=== PATIENT | female | born 1970 | race Caucasian/White ===

== ENCOUNTER 2016-11-02 18:56 | Emergency (ER) | payer OTHER ==
[2016-11-02 19:04] VITALS: RESP 16; TEMP 98.8
[2016-11-02] MEDS ORDERED: ASPIRIN 81 MG CHEW PO STA (19:39)
[2016-11-02] MEDS ORDERED: NITROGLYCERIN OINT 1 INCH/GM PACKET TOPICAL STA (19:39)
--- NOTE | 2016-11-02 19:43 | ED ---
General Adult HPI - General Chief complaint: Chest Pain Stated complaint: chest pain Time Seen by Provider: 11/02/16 19:30 Source: patient, RN notes reviewed Mode of arrival: wheelchair Limitations: no limitations - History of Present Illness Initial comments: Patient is a pleasant 45-year-old female presenting to the emergency department complaining of chest discomfort. Symptoms have been intermittent over the past couple of weeks. Symptoms have been on and off all day today. Symptoms are somewhat worse today. Symptoms are mild at this time. Patient has discomfort in her left chest. Discomfort is worse with deep breaths as well as touch. Patient did not feel short of breath. No nausea. Patient was sweaty earlier. No history of similar symptoms previously. Patient does have associated palpitations. Patient did have recent Holter monitor as well as echo and was told there is some sort of abnormality of the lower part of her heart. - Related Data Home Medications Medication Instructions Recorded Confirmed Hydrochlorothiazide [Hydrodiuril] 25 mg PO DAILY 11/02/16 11/02/16 Metoprolol Tartrate [Lopressor] 25 mg PO DAILY 11/02/16 11/02/16 Terbinafine [LamISIL] 250 mg PO DAILY 11/02/16 11/02/16 Vitamin E (Dl,Tocopheryl Acet) 400 unit PO DAILY 11/02/16 11/02/16 [Vitamin E] amLODIPine [Norvasc] 10 mg PO DAILY 11/02/16 11/02/16 Allergies Allergy/AdvReac Type Severity Reaction Status Date / Time hydrocodone [From Vicodin] AdvReac Nausea & Verified 11/02/16 19:31 Vomiting ibuprofen [From Motrin] AdvReac Unknown Verified 11/02/16 19:31 Review of Systems ROS Statement: Those systems with pertinent positive or pertinent negative responses have been documented in the HPI. ROS Other: All systems not noted in ROS Statement are negative. Constitutional: Denies: fever Eyes: Denies: eye pain ENT: Denies: ear pain Respiratory: Denies: cough, dyspnea Cardiovascular: Reports: chest pain, palpitations Endocrine: Denies: fatigue Gastrointestinal: Denies: abdominal pain Genitourinary: Denies: dysuria Musculoskeletal: Denies: back pain Skin: Denies: rash Neurological: Denies: weakness Past Medical History Past Medical History: Cancer, Hypertension Additional Past Medical History / Comment(s): Kidney, History of Any Multi-Drug Resistant Organisms: None Reported Past Surgical History: Orthopedic Surgery, Tubal Ligation Additional Past Surgical History / Comment(s): Portion of (L) kidney has been removed. Past Psychological History: No Psychological Hx Reported Smoking Status: Never smoker Past Alcohol Use History: None Reported Past Drug Use History: None Reported General Exam Limitations: no limitations General appearance: alert, in no apparent distress Head exam: Present: atraumatic Eye exam: Present: normal appearance, PERRL ENT exam: Present: normal oropharynx Neck exam: Present: normal inspection Respiratory exam: Present: normal lung sounds bilaterally, chest wall tenderness Cardiovascular Exam: Present: regular rate, normal rhythm Expanded Peripheral pulses: 2+: Radial (R), Radial (L), Dorsalis Pedis (R), Dorsalis Pedis (L) GI/Abdominal exam: Present: soft. Absent: tenderness Extremities exam: Present: normal inspection. Absent: pedal edema, calf tenderness Neurological exam: Present: alert Psychiatric exam: Present: normal affect, normal mood Skin exam: Absent: rash Course Vital Signs 11/02/16 11/02/16 18:59 20:50 Temperature 98.8 F Pulse Rate 85 85 Respiratory 16 16 Rate Blood Pressure 174/85 106/56 O2 Sat by Pulse 97 95 Oximetry EKG Findings - EKG Comments: EKG Findings:: Normal sinus rhythm at 85. MO 140. QRS 86. QT 376. QTc 447. Normal axis. Normal QRS. Normal ST-T. Medical Decision Making - Medical Decision Making Patient reevaluated and resting comfortably in bed. Patient updated on results and plan. Case discussed with Dr. Marroquin, who will admit for Dr. vargas - Lab Data Result diagrams: 11/02/16 19:14 11/02/16 19:14 Lab Results 11/02/16 11/02/16 11/02/16 Range/Units 19:14 19:14 19:14 WBC 8.6 (3.8-10.6) k/uL RBC 5.04 (3.80-5.40) m/uL Hgb 14.4 (11.4-16.0) gm/dL Hct 42.6 (34.0-46.0) % MCV 84.4 (80.0-100.0) fL MCH 28.5 (25.0-35.0) pg MCHC 33.8 (31.0-37.0) g/dL RDW 13.3 (11.5-15.5) % Plt Count 297 (150-450) k/uL Neutrophils % 54 % Lymphocytes % 36 % Monocytes % 4 % Eosinophils % 2 % Basophils % 1 % Neutrophils # 4.6 (1.3-7.7) k/uL Lymphocytes # 3.1 (1.0-4.8) k/uL Monocytes # 0.4 (0-1.0) k/uL Eosinophils # 0.2 (0-0.7) k/uL Basophils # 0.1 (0-0.2) k/uL PT (9.0-12.0) sec INR (<1.1) APTT (22.0-30.0) sec D-Dimer (<0.60) mg/L FEU Sodium 145 (137-145) mmol/L Potassium 3.7 (3.5-5.1) mmol/L Chloride 103 (98-107) mmol/L Carbon Dioxide 31 H (22-30) mmol/L Anion Gap 11 mmol/L BUN 14 (7-17) mg/dL Creatinine 1.00 (0.52-1.04) mg/dL Est GFR (MDRD) Af Amer >60 (>60 ml/min/1.73 sqM) Est GFR (MDRD) Non-Af 60 (>60 ml/min/1.73 sqM) Glucose 109 H (74-99) mg/dL Calcium 9.6 (8.4-10.2) mg/dL Magnesium 1.9 (1.6-2.3) mg/dL Total Bilirubin 0.3 (0.2-1.3) mg/dL AST 17 (14-36) U/L ALT 28 (9-52) U/L Alkaline Phosphatase 81 (38-126) U/L Total Creatine Kinase 36 (30-135) U/L CK-MB (CK-2) 0.7 (0.0-2.4) ng/mL CK-MB (CK-2) Rel Index 1.9 Troponin I <0.012 (0.000-0.034) ng/mL Total Protein 7.4 (6.3-8.2) g/dL Albumin 4.2 (3.5-5.0) g/dL 11/02/16 Range/Units 19:14 WBC (3.8-10.6) k/uL RBC (3.80-5.40) m/uL Hgb (11.4-16.0) gm/dL Hct (34.0-46.0) % MCV (80.0-100.0) fL MCH (25.0-35.0) pg MCHC (31.0-37.0) g/dL RDW (11.5-15.5) % Plt Count (150-450) k/uL Neutrophils % % Lymphocytes % % Monocytes % % Eosinophils % % Basophils % % Neutrophils # (1.3-7.7) k/uL Lymphocytes # (1.0-4.8) k/uL Monocytes # (0-1.0) k/uL Eosinophils # (0-0.7) k/uL Basophils # (0-0.2) k/uL PT 10.0 (9.0-12.0) sec INR 1.0 (<1.1) APTT 23.2 (22.0-30.0) sec D-Dimer 0.22 (<0.60) mg/L FEU Sodium (137-145) mmol/L Potassium (3.5-5.1) mmol/L Chloride (98-107) mmol/L Carbon Dioxide (22-30) mmol/L Anion Gap mmol/L BUN (7-17) mg/dL Creatinine (0.52-1.04) mg/dL Est GFR (MDRD) Af Amer (>60 ml/min/1.73 sqM) Est GFR (MDRD) Non-Af (>60 ml/min/1.73 sqM) Glucose (74-99) mg/dL Calcium (8.4-10.2) mg/dL Magnesium (1.6-2.3) mg/dL Total Bilirubin (0.2-1.3) mg/dL AST (14-36) U/L ALT (9-52) U/L Alkaline Phosphatase (38-126) U/L Total Creatine Kinase (30-135) U/L CK-MB (CK-2) (0.0-2.4) ng/mL CK-MB (CK-2) Rel Index Troponin I (0.000-0.034) ng/mL Total Protein (6.3-8.2) g/dL Albumin (3.5-5.0) g/dL - Radiology Data Radiology results: image reviewed (Chest x-ray shows no acute process) Disposition Clinical Impression: Chest pain Disposition: ADMITTED IP TO THIS [facility] Time of Disposition: 21:07
[2016-11-02 19:50] LABS: Basophils # (A) 0.1 k/uL (0-0.2); Basophils % (A) 1 %; CH 28.6; Eosinophils # (A) 0.2 k/uL (0-0.7); Eosinophils % (A) 2 %; HCT 42.6 % (34.0-46.0); HDW 2.98; HGB 14.4 gm/dL (11.4-16.0); Luc # (Auto) 0.25; Luc % (Auto) 3; Lymphocytes # (A) 3.1 k/uL (1.0-4.8); Lymphocytes % (A) 36 %; MCH 28.5 pg (25.0-35.0); MCHC 33.8 g/dL (31.0-37.0); MCV 84.4 fL (80.0-100.0); Mean Platelet Volume 7.7; Monocytes # (A) 0.4 k/uL (0-1.0); Monocytes % (A) 4 %; Neutrophils # (A) 4.6 k/uL (1.3-7.7); Neutrophils % (A) 54 %; RBC 5.04 m/uL (3.80-5.40); RDW 13.3 % (11.5-15.5); WBC 8.6 k/uL (3.8-10.6); WBC (Perox) 8.37
[2016-11-02 19:59] LABS: ALT 28 U/L (9-52); AST 17 U/L (14-36); Alkaline Phosphatase 81 U/L (38-126); Anion Gap 11 mmol/L; Blood Urea Nitrogen 14 mg/dL (7-17); Calcium 9.6 mg/dL (8.4-10.2); Carbon Dioxide 31 mmol/L (22-30); Chloride 103 mmol/L (98-107); Glucose 109 mg/dL (74-99); Magnesium 1.9 mg/dL (1.6-2.3); Non-African American GFR(MDRD) 60 (>60 ml/min/1.73 sqM); Potassium 3.7 mmol/L (3.5-5.1); Sodium 145 mmol/L (137-145); Total Bilirubin 0.3 mg/dL (0.2-1.3); Total Protein 7.4 g/dL (6.3-8.2)
[2016-11-02 20:03] LABS: Partial Thromboplastin Time 23.2 sec (22.0-30.0)
[2016-11-02 20:12] LABS: Creatine Kinase 36 U/L (30-135)
--- NOTE | 2016-11-02 20:12 | XR ---
EXAMINATION TYPE: XR chest 2V DATE OF EXAM: 11/02/2016 7:59 PM COMPARISON: NONE HISTORY: Chest pain TECHNIQUE: Frontal and lateral views of the chest are obtained. FINDINGS: Heart and mediastinum are normal. Lungs are clear. Diaphragm is normal. Bony thorax is int act. There are chest leads. IMPRESSION: Normal chest
[2016-11-02 20:23] LABS: Creatine Kinase MB 0.7 ng/mL (0.0-2.4); Troponin I <0.012 ng/mL (0.000-0.034)
[2016-11-02] MEDS ORDERED: NITROGLYCERIN SL TABS 0.4 MG TAB SUBLINGUAL PRN (21:07)
[2016-11-02 21:30] VITALS: BP 111/58; PULSE 90
[2016-11-03] MEDS ORDERED: NITROGLYCERIN OINT 1 INCH/GM PACKET TOPICAL SCH
[2016-11-03] MEDS ORDERED: ASPIRIN 325 MG TAB PO SCH (09:00)
== END 2016-11-02 21:30 | disposition other institution (70) ==
LOC: EC 18:56 → 3SUR 21:07 → UNDOADMOB 21:07
DX: R07.9 Chest pain, unspecified (principal); I10 Essential (primary) hypertension; Z85.9 Personal history of malignant neoplasm, unspecified; Z88.6 Allergy status to analgesic agent; Z88.5 Allergy status to narcotic agent; Z79.899 Other long term (current) drug therapy
CPT/HCPCS: 36415; 71020; 80053; 82550; 82553; 83735; 84484; 85025; 85379; 85610; 85730; 93005; 99285

== ENCOUNTER 2018-04-23 08:31 | Day surgery (SDC) | payer OTHER ==
[2018-04-21 11:11] VITALS: BMI 45.7
--- NOTE | 2018-04-23 05:45 | P.GSHP ---
History of Present Illness H&P Date: 04/23/18 CHIEF COMPLAINT: Colon screen HISTORY OF PRESENT ILLNESS: The patient is a 47-year-old female who presents for colon screen. Lower endoscopy was offered for further evaluation and management. PAST MEDICAL HISTORY: Please see list. PAST SURGICAL HISTORY: Please see list. MEDICATIONS: Please see list. ALLERGIES: Please see list. SOCIAL HISTORY: No illicit drug use FAMILY HISTORY: No reports of Crohn disease or ulcerative colitis. REVIEW OF ORGAN SYSTEMS: CONSTITUTIONAL: No reports of fevers or chills. PHYSICAL EXAM: VITAL SIGNS: Stable GENERAL: Well-developed pleasant in no acute distress. HEENT: No scleral icterus. Extraocular movements grossly intact. Moist buccal mucosa. NECK: Supple without lymphadenopathy. CHEST: Unlabored respirations. Equal bilateral excursions. CARDIOVASCULAR: Regular rate and rhythm. Distal 2+ pulses. ABDOMEN: Soft, nontender, nondistended. MUSCULOSKELETAL: No clubbing, cyanosis, or edema. ASSESSMENT: 1. Colon screen. PLAN: 1. Recommend proceeding with a lower endoscopy Past Medical History Past Medical History: Cancer, Hypertension Additional Past Medical History / Comment(s): Hx Kidney CA 15 yrs, History of Any Multi-Drug Resistant Organisms: None Reported Past Surgical History: Orthopedic Surgery, Tubal Ligation Additional Past Surgical History / Comment(s): Portion of (L) kidney has been removed. Past Anesthesia/Blood Transfusion Reactions: No Reported Reaction Smoking Status: Former smoker - Past Family History Mother Family Medical History: No Reported History Medications and Allergies Home Medications Medication Instructions Recorded Confirmed Type Hydrochlorothiazide [Hydrodiuril] 25 mg PO DAILY 11/02/16 04/21/18 History Metoprolol Tartrate [Lopressor] 25 mg PO DAILY 11/02/16 04/21/18 History Vitamin E (Dl,Tocopheryl Acet) 400 unit PO WE 11/02/16 04/21/18 History [Vitamin E] amLODIPine [Norvasc] 10 mg PO DAILY 11/02/16 04/21/18 History Cyclobenzaprine [Flexeril] 5 mg PO TID 04/21/18 04/21/18 History DULoxetine HCL [Cymbalta] 20 mg PO DAILY 04/21/18 04/21/18 History Loratadine 10 mg PO DAILY 04/21/18 04/21/18 History Meloxicam 7.5 mg PO DAILY 04/21/18 04/21/18 History traMADol HCL [Ultram] 50 mg PO Q4HR PRN 04/21/18 04/21/18 History Allergies Allergy/AdvReac Type Severity Reaction Status Date / Time hydrocodone [From Vicodin] AdvReac Nausea & Verified 04/21/18 10:55 Vomiting ibuprofen [From Motrin] AdvReac one kidney Verified 04/21/18 10:55
[~2018-04-23 08:31] MED LIST: LACTATED RINGERS 1,000 ML IV SCH
[2018-04-23] MEDS ORDERED: LIDOCAINE 1% 20 ML VIAL (10MG/ML) FOR IV START INTRADERMA ONE (09:29)
[2018-04-23 09:32] VITALS: RESP 16; TEMP 97.3
[2018-04-23] MEDS ORDERED: LIDOCAINE 1% INJ 10MG/ML (20 ML MDV) ONE (10:05)
[2018-04-23] MEDS ORDERED: PROPOFOL 10 MG/ML 20 ML VIAL IV ONE (10:05)
--- NOTE | 2018-04-23 10:26 | P.PCN ---
Date of Procedure: 04/23/18 Description of Procedure: PREOPERATIVE DIAGNOSIS: History of rectal bleeding Ghange in bowel habits Family history of colon cancer, grandmother POSTOPERATIVE DIAGNOSIS: History of rectal bleeding Ghange in bowel habits Family history of colon cancer, grandmother Tubular adenoma, malignant polyp, ileocecal valve (cecum) Sigmoid diverticulosis OPERATION: Colonoscopy to the ileocecal valve and appendiceal orifice. Colonoscopy with hot snare polypectomy at ileocecal valve SURGEON: Nanette Ho MD. ANESTHESIA: MAC. INDICATIONS: The patient is a 47-year-old female who presents for evaluation for rectal bleeding. Benefits and risks were described and informed consent was obtained. DESCRIPTION OF PROCEDURE: The patient had undergone Gatorade, MiraLAX and Dulcolax prep. She had been brought into the operating room and laid in the left lateral decubitus position. After adequate intravenous sedation, the rectum was examined with 2% lidocaine jelly. External hemorrhoids were encountered. The rectal tone was within normal limits. No lesions were palpated in the rectal vault. An Olympus colonoscope was advanced until the ileocecal valve and appendiceal orifice were clearly viewed. The prep was poor with semisolid stool in the sigmoid colon. The scope was removed with visualization of each mucosal fold. Sigmoid diverticulosis was encountered. A large over 1 cm tubular adenoma pedunculated identified at the ileocecal valve snare polypectomy. No evidence of focal colitis was found. Retroflexion of the scope demonstrated grade 1 internal hemorrhoids without active bleeding or inflammation. The colon was desufflated. The patient had tolerated the procedure well. Withdrawal time was over 6 minutes. FINDINGS: Internal hemorrhoids, grade 1 External hemorrhoids, grade 2 No arteriovenous malformations Removal of 1 large polyp from ascending colon: - A large over 1 cm tubular adenoma pedunculated identified at the ileocecal valve snare polypectomy. No focal colitis. Sigmoid diverticulosis RECOMMENDATIONS: Given severity of tubular adenomas, recommend repeat colonoscopy 1 year, 2018 Plan - Discharge Summary New Discharge Prescriptions: No Action amLODIPine [Norvasc] 10 mg PO DAILY Vitamin E (Dl,Tocopheryl Acet) [Vitamin E] 400 unit PO WE Metoprolol Tartrate [Lopressor] 25 mg PO DAILY Hydrochlorothiazide [Hydrodiuril] 25 mg PO DAILY traMADol HCL [Ultram] 50 mg PO Q4HR PRN PRN Reason: Pain Cyclobenzaprine [Flexeril] 5 mg PO TID Meloxicam 7.5 mg PO DAILY Loratadine 10 mg PO DAILY DULoxetine HCL [Cymbalta] 20 mg PO DAILY Discharge Medication List Hydrochlorothiazide [Hydrodiuril] 25 mg PO DAILY 11/02/16 [History] Metoprolol Tartrate [Lopressor] 25 mg PO DAILY 11/02/16 [History] Vitamin E (Dl,Tocopheryl Acet) [Vitamin E] 400 unit PO WE 11/02/16 [History] amLODIPine [Norvasc] 10 mg PO DAILY 11/02/16 [History] Cyclobenzaprine [Flexeril] 5 mg PO TID 04/21/18 [History] DULoxetine HCL [Cymbalta] 20 mg PO DAILY 04/21/18 [History] Loratadine 10 mg PO DAILY 04/21/18 [History] Meloxicam 7.5 mg PO DAILY 04/21/18 [History] traMADol HCL [Ultram] 50 mg PO Q4HR PRN 04/21/18 [History]
[2018-04-23 10:42] VITALS: PULSE 88
[2018-04-23 10:58] VITALS: BP 138/90
== END 2018-04-23 11:01 | disposition home or self-care (01) ==
LOC: ORWHC2ENDO 08:31
PROVIDERS: ATTEND Surgery Plastic and Reconstructive Surgery
DX: D12.0 Benign neoplasm of cecum (principal); K57.30 Diverticulosis of large intestine without perforation or abscess without bleeding; K64.0 First degree hemorrhoids; K64.1 Second degree hemorrhoids; Z80.0 Family history of malignant neoplasm of digestive organs; I10 Essential (primary) hypertension; Z87.891 Personal history of nicotine dependence; Z85.528 Personal history of other malignant neoplasm of kidney; F39 Unspecified mood [affective] disorder; Z90.5 Acquired absence of kidney; Z79.1 Long term (current) use of non-steroidal anti-inflammatories (NSAID); Z79.899 Other long term (current) drug therapy; Z88.6 Allergy status to analgesic agent; Z88.5 Allergy status to narcotic agent
CPT/HCPCS: 45385; J2001; J2704; 88305

== ENCOUNTER → 2019-03-09 | Outpatient (CLI) | payer OTHER ==
--- NOTE | 2019-03-09 22:38 | US ---
EXAMINATION TYPE: US thyroid st tissue head/neck DATE OF EXAM: 03/09/2019 COMPARISON: NONE CLINICAL HISTORY: 48-year-old female E04.9 Enlarged thyroid. Pt states possible thyroid enlargement f elt on Dr's examination, not on thyroid meds TECHNIQUE: Multiple sonographic images of the thyroid gland are obtained. FINDINGS: GLAND SIZE: Right Lobe: 6.1 x 1.9 x 1.9 cm Overall Parenchyma: heterogenous Left Lobe: 5.5 x 1.8 x 2.0 cm Overall Parenchyma: heterogeneous Isthmus Thickness: 0.5 cm NODULES RIGHT: # of nodules measured on right: 1 1. 2.7 X 1.3 x 1.6 cm hypoechoic solid nodule at the mid pole with well-defined margins; This nodu le is wider than tall and shows intranodular vascularity. Prior size: No prior Other innumerable sub-centimeter nodules scattered throughout lobe LEFT: # of nodules measured on left: 1 1. 0.8 X 0.5 x 0.7 cm isoechoic solid nodule at the mid pole with poorly defined margins; This nod ule is wider than tall and shows intranodular vascularity. Prior size: No prior Sheriff Sergeant notes: Bilateral neck scanned, no evidence of lymphadenopathy. Nodule >1.0 cm in the righ t lobe, all other nodules are sub-centimeter. IMPRESSION: 1. Thyromegaly with numerous subcentimeter nodules. Findings suggest goiter. 2. Dominant nodule is on the right measuring 2.7 x 1.6 cm. The decision to biopsy should be made on a clinical basis.
== END | disposition home or self-care (01) ==
LOC: RADUSWWP 14:40
PROVIDERS: ATTEND Family Medicine
DX: E04.2 Nontoxic multinodular goiter (principal); Z88.6 Allergy status to analgesic agent; Z88.5 Allergy status to narcotic agent
CPT/HCPCS: 76536

== ENCOUNTER → 2019-07-02 | Outpatient (CLI) | payer OTHER ==
--- NOTE | 2019-07-02 22:29 | CONS ---
CONSULTATION DATE OF SERVICE: 07/02/2019 48-year-old lady has been evaluated in the sleep center for possible obstructive sleep apnea-hypopnea syndrome and excessive daytime sleepiness. HISTORY OF PRESENT ILLNESS/SLEEP-WAKE EVALUATION: SLEEP SCHEDULE: Patient's usual sleep schedule from 10 p.m. until 5:00 am but she goes out of bed only at noon. FALLING ASLEEP: She denies any problems with falling asleep. No TV in bedroom. DURING SLEEP: She prefers to sleep on the stomach position. She has loud snoring, witnessed episodes of stopped breathing during sleep. Patient wakes up from sleep with a choking about several times and has episodes of nocturia. No history of hypnagogic hallucinations, sleep paralysis or cataplexy. DURING THE DAY/SLEEP WAKE EVALUATION: During the day, the patient feels sleepy. Takes up to 2 naps a day at a different time. [place] Sleepiness Scale significantly increased to 15. She has problems with memory, depression. PAST MEDICAL HISTORY: Positive for fibromyalgia, recently diagnosed with Parkinson disease, hypertension, anxiety and myasthenia gravis. PAST SURGICAL HISTORY: Left knee arthroscopic surgery x2, status post left nephrectomy for kidney CA in 2002, menopause for 2 years. MEDICATIONS: 1. Ropinirole 0.25 mg 3 times a day. 2. Cyclobenzaprine. 3. Duloxetine. 4. Loratadine. 5. Hydrochlorothiazide. 6. Amlodipine. 7. Meloxicam. 8. Metoprolol. 9. Tramadol. 10.Vitamin D2 supplement. REVIEW OF SYSTEMS: Awakenings from sleep, sleepiness during the day. FAMILY HISTORY: Hypertension, heart problems, fibromyalgia, arthritis, snoring, cancer, restless legs. SOCIAL HISTORY: Positive for smoking less than 1 pack a day for 10 years, quit about 22 years ago. Alcohol consumption none. PHYSICAL EXAM: lady without distress. BP 135/62, HR 91, RR 16, height 5 feet 3 inches, weight 277.4 pounds, body mass index 49.0, temperature 98.6, oxygen saturation at room air 95%. Oropharynx: Retrognathia 3-4 mm. Extremely low position of soft palate. Mallampati 4. Restriction of nasal breathing. Wide neck for female 16 inches. NECK: Supple, no JVD. Thyroid is not palpable. LUNGS: Clear to percussion and to auscultation. Good air exchange. No wheezing or rhonchi. HEART: S1, S2 regular. No murmurs, gallops, or rubs. ABDOMEN: Obese. Soft and nontender. Bowel sounds are present. No organomegaly appreciated. EXTREMITIES: No clubbing or cyanosis. MANAGER OF CASE: Awake, alert, and oriented X3. Cranial nerves 2 to 7 intact. There is no fasciculation or atrophy. noted. No focal deficits observed. Tremor of the finger with finger probe. IMPRESSION: 1. Loud snoring, witnessed episodes of stopped breathing during the sleep, awakenings from sleep with choking, extremely low position of soft palate, Mallampati 4. Wide neck. Excessive daytime sleepiness, obstructive sleep apnea-hypopnea syndrome. 2. Obesity BMI 49.0. 3. History of fibromyalgia. 4. Parkinson disease. 5. Hypertension. 6. Anxiety. 7. Status post left knee arthroscopic surgery x2. 8. Status post left nephrectomy for carcinoma in 2002. 9. Menopause for 2 years. PLAN: 1. Polysomnography for evaluation of patient's breathing during sleep. 2. CPAP/BiPAP titration if sleep study confirms obstructive sleep apnea-hypopnea syndrome. 3. Preferable position during sleep on the side. 4. No driving if patient feels any sleepiness. 5. I will see patient for follow up visit to explain results of testing and following plan. Thank you very much for referring this patient for consultation. Sincerely, Waldemar Morrison MD, PhD, FAASM Diplomat of [place] [employer] [place] [employer] Operation Shift Supervisor of [facility] [place] MMODL / IJN: [id number] /
== END | disposition home or self-care (01) ==
LOC: SLEEP 14:35
PROVIDERS: ATTEND Internal Medicine
DX: G47.33 Obstructive sleep apnea (adult) (pediatric) (principal); F17.210 Nicotine dependence, cigarettes, uncomplicated; E66.9 Obesity, unspecified; I10 Essential (primary) hypertension; F41.9 Anxiety disorder, unspecified; G20 Parkinson's disease; Z68.42 Body mass index [BMI] 45.0-49.9, adult; Z78.0 Asymptomatic menopausal state; Z98.890 Other specified postprocedural states; Z87.39 Personal history of other diseases of the musculoskeletal system and connective tissue; Z79.899 Other long term (current) drug therapy; Z79.891 Long term (current) use of opiate analgesic
CPT/HCPCS: 99211

== ENCOUNTER 2020-10-21 12:56 | Emergency (ER) | payer OTHER ==
[2020-10-21 13:09] VITALS: BP 164/80; PULSE 109; RESP 18; TEMP 98.1
[2020-10-21] MEDS ORDERED: MORPHINE SULFATE 4 MG/ML SYRINGE IM STA (13:16)
--- NOTE | 2020-10-21 13:22 | ED ---
Lower Extremity Injury HPI - General Chief Complaint: Extremity Injury, Lower Stated Complaint: fall, rt ankle injury Time Seen by Provider: 10/21/20 13:10 Source: patient, RN notes reviewed Mode of arrival: wheelchair Limitations: no limitations - History of Present Illness Initial Comments: Patient is a 49-year-old female that presents to emergency department with right ankle pain after missing the last step on her stairs. She noted that she did fall and scraped up her alcala. She notes that most the pain is in her lateral right ankle. She notes that the ankle swelled. She states that she is unable to walk on it at this time. Patient did note that she can wiggle her toes but has a difficult time moving her ankle secondary to pain. She notes the pain is a 9 out of 10 constant with no relief from at home remedies or ice. Patient denied any numbness tingling chest pain first breath headache nausea vomiting diarrhea constipation fever fatigue chills. - Related Data Home Medications Medication Instructions Recorded Confirmed Metoprolol Tartrate [Lopressor] 25 mg PO DAILY 11/02/16 04/27/20 amLODIPine [Norvasc] 10 mg PO DAILY 11/02/16 04/27/20 hydroCHLOROthiazide [Hydrodiuril] 25 mg PO DAILY 11/02/16 04/27/20 Cyclobenzaprine [Flexeril] 5 mg PO TID 04/21/18 04/27/20 Loratadine 10 mg PO DAILY 04/21/18 04/27/20 Meloxicam 7.5 mg PO DAILY 04/21/18 04/27/20 traMADol HCL [Ultram] 50 mg PO Q4HR PRN 04/21/18 04/27/20 DULoxetine HCL [Cymbalta] 60 mg PO DAILY 04/27/20 04/27/20 rOPINIRole HCL [Requip] 0.25 mg PO TID 04/27/20 04/27/20 Allergies Allergy/AdvReac Type Severity Reaction Status Date / Time hydrocodone [From Vicodin] AdvReac Nausea & Verified 10/21/20 13:09 Vomiting ibuprofen [From Motrin] AdvReac one kidney Verified 10/21/20 13:09 Review of Systems ROS Statement: Those systems with pertinent positive or pertinent negative responses have been documented in the HPI. ROS Other: All systems not noted in ROS Statement are negative. Past Medical History Past Medical History: Cancer, Fibromyalgia, Hypertension Additional Past Medical History / Comment(s): KIDNEY CANCER. PARKINSON'S History of Any Multi-Drug Resistant Organisms: None Reported Past Surgical History: Orthopedic Surgery, Tubal Ligation Additional Past Surgical History / Comment(s): Portion of (L) kidney has been removed. LT KNEE SCOPE X 2. COLONOSCOPY Past Anesthesia/Blood Transfusion Reactions: Previous Problems w/ Anesthesia Additional Past Anesthesia/Blood Transfusion Reaction / Comment(s): O2 LEVELS DROP WHEN COMING OUT OF ANESTHESIA Past Psychological History: No Psychological Hx Reported Smoking Status: Former smoker Past Alcohol Use History: None Reported Past Drug Use History: None Reported - Past Family History Mother Family Medical History: Cancer Sister(s) Family Medical History: Cancer General Exam Limitations: no limitations General appearance: alert, in no apparent distress, obese Head exam: Present: atraumatic, normocephalic, normal inspection Eye exam: Present: normal appearance, PERRL, EOMI. Absent: scleral icterus, conjunctival injection, periorbital swelling Neck exam: Present: normal inspection Respiratory exam: Present: normal lung sounds bilaterally. Absent: respiratory distress, wheezes, rales, rhonchi, stridor Cardiovascular Exam: Present: regular rate, normal rhythm, normal heart sounds. Absent: systolic murmur, diastolic murmur, rubs, gallop, clicks GI/Abdominal exam: Present: soft, normal bowel sounds. Absent: distended, tenderness, guarding, rebound, rigid Extremities exam: Present: tenderness (Over the lateral malleolus of right ankle), normal capillary refill, joint swelling (Right ankle). Absent: full ROM (Right ankle secondary to pain), pedal edema, calf tenderness Neurological exam: Present: alert, oriented X3, CN II-XII intact Psychiatric exam: Present: normal affect, normal mood Skin exam: Present: warm, dry, intact, normal color. Absent: rash Course Vital Signs 10/21/20 13:07 Temperature 98.1 F Pulse Rate 109 H Respiratory 18 Rate Blood Pressure 164/80 O2 Sat by Pulse 97 Oximetry Medical Decision Making - Medical Decision Making 49-year-old female with right ankle pain after missing the last step on her stairs. X-ray the right ankle and foot ordered. 4 mg of morphine ordered. X-rays negative for any acute fractures or dislocations. Case discussed with Dr. Bell, patient discharged home with follow-up to primary care. - Radiology Data Radiology results: report reviewed, image reviewed Right ankle x-ray: No definitive acute fracture or dislocation. If symptoms persist follow-up study in 7-10 days would be suggested Right foot x-ray: First MTP joint arthropathy, no acute fracture dislocation. Disposition Clinical Impression: Right ankle sprain Disposition: HOME SELF-CARE Condition: Stable Instructions (If sedation given, give patient instructions): Ankle Sprain (ED) Additional Instructions: Please return to the Emergency Department if symptoms worsen or any other concerns. Follow-up primary care 3-5 days. If pain persists follow-up x-rays and approximate 7 days. Can take [id number] anti-inflammatories for pain control. Rest ice compress elevate, use as tolerated. Is patient prescribed a controlled substance at d/c from ED?: No Referrals: Yaakov Woodson MD [Primary Care Provider] - 1-2 days Time of Disposition: 14:39
--- NOTE | 2020-10-21 13:58 | XR ---
EXAMINATION TYPE: XR ankle limited RT DATE OF EXAM: 10/21/2020 COMPARISON: NONE HISTORY: Pain FINDINGS: Three views of the ankle demonstrate the ankle mortise to be intact and symmetric. The joint spaces are preserved. The osseous structures are intact. Calcaneal spur. IMPRESSION: 1. No definite acute fracture or dislocation, if symptoms persist follow-up study in 7 to 10 days wou ld be suggested.
--- NOTE | 2020-10-21 13:58 | XR ---
EXAMINATION TYPE: XR foot limited RT DATE OF EXAM: 10/21/2020 COMPARISON: NONE HISTORY: Pain TECHNIQUE: Three views are submitted. FINDINGS: The osseous structures are intact. There is no acute fracture or dislocation. Arthropathy of the f irst MTP joint. Calcaneal spurs. IMPRESSION: 1. First MTP joint arthropathy.
== END 2020-10-21 14:50 | disposition home or self-care (01) ==
LOC: EC 12:56
DX: S93.401A Sprain of unspecified ligament of right ankle, initial encounter (principal); W18.30XA Fall on same level, unspecified, initial encounter; I10 Essential (primary) hypertension; Z87.891 Personal history of nicotine dependence; Z98.51 Tubal ligation status
CPT/HCPCS: 73600; 73620; 99283; 96372; J2270

== ENCOUNTER → 2024-07-08 | Outpatient (CLI) | payer OTHER ==
--- NOTE | 2024-07-08 15:07 | US ---
EXAMINATION TYPE: US kidneys/renal and bladder DATE OF EXAM: 07/08/2024 COMPARISON: NONE CLINICAL INDICATION: Female, 53 years old with history of N18.32 CKD STAGE 3B; PARTIAL LT NEPHRECTOMY IN 2013 TECHNIQUE: Grayscale imaging of the bilateral kidneys and urinary bladder: FINDINGS: EXAM MEASUREMENTS: Right Kidney: 11.7X5.1X5.9 cm Left Kidney: 11.4X5.8X5.6 cm SLIGHTLY LIMITED EXAM DUE TO PT BODY HABITUS Right Kidney: No hydronephrosis or masses seen Left Kidney: No hydronephrosis or masses seen Pt had partial Lt nephrectomy several years ago Bladder: wnl Bilateral Jets seen: Yes IMPRESSION: 1. No evidence for obstructive uropathy. 2. Partial left nephrectomy changes. [facility], , 07/08/2024 3:05 PM
== END | disposition home or self-care (01) ==
LOC: RADUSWWP 14:34
PROVIDERS: ATTEND Family Medicine
DX: N18.32 Chronic kidney disease, stage 3b (principal); Z85.528 Personal history of other malignant neoplasm of kidney; Z90.5 Acquired absence of kidney
CPT/HCPCS: 76770